=== PATIENT | male | born 1980 ===

== ENCOUNTER 2016-10-15 00:56 | Emergency (ER) | payer MEDICAID ==
[2016-10-15 01:01] VITALS: RESP 16; O2SAT 97
--- NOTE | 2016-10-15 02:37 | EDPHY ---
H & P Stated Complaint: trip and fall, lacs on face from broken glass Time Seen by Provider: 10/15/16 01:06 HPI/ROS: HPI: The patient presents with a fall which occurred just prior to arrival. He was walking down the stairs and a sasha jar shattered and hit him in the face. He has multiple facial lacerations and abrasions. He did not lose consciousness and does not have a headache, vomiting. REVIEW OF SYSTEMS Constitutional: No fever, no chills. Eyes: No discharge. ENT: No sore throat. Cardiovascular: No chest pain, no palpitations. Respiratory: No cough, no shortness of breath. Gastrointestinal: No abdominal pain, no vomiting. Genitourinary: No hematuria. Musculoskeletal: No back pain. Skin: No rashes. Neurological: No headache. PMHx: Healthy, recently seen for finger laceration, tetanus vaccine is up-to- date TRAUMA PHYSICAL General Appearance: Alert, no distress Head: There is a left-sided upper lip laceration which is oblique through the vermilion border, there is a 1 cm in her upper lip laceration which is superficial, there are 3 forehead lacerations with palpable foreign body. Eyes: Pupils equal, round, reactive ENT, Mouth: No hemotypanium, no oral trauma Neck: Non- tender, trachea midline Respiratory: No chest wall tenderness, no subcutaneous air, lungs clear bilaterallty Cardiovascular: Regular rate and rhythm Abdomen: Abdomen is soft and non-tender, pelvis stable Extremities: Non-tender, full range of motion Neurological: A&Ox3, GCS=15,normal motor function with 5/5 strength in all 4 extremities, normal sensory exam Source: Patient Exam Limitations: No limitations - Personal History Current Tetanus/Diphtheria Vaccine: Yes Current Tetanus Diphtheria and Acellular Pertussis (TDAP): Yes - Medical/Surgical History Hx Asthma: No Hx Chronic Respiratory Disease: No Hx Diabetes: No Hx Cardiac Disease: No Hx Renal Disease: No Hx Cirrhosis: No Hx Alcoholism: No Hx HIV/AIDS: No Hx Splenectomy or Spleen Trauma: No Other PMH: Denies - Social History Smoking Status: Current every day smoker Constitutional: Initial Vital Signs Temperature (C) 36.8 C 10/15/16 00:58 Heart Rate 67 10/15/16 00:58 Respiratory Rate 16 10/15/16 00:58 Blood Pressure 124/70 H 10/15/16 00:58 O2 Sat (%) 97 10/15/16 00:58 O2 Delivery Mode Room Air Allergies/Adverse Reactions: No Known Allergies Allergy (Unverified 10/15/16 00:57) Home Medications: Medication Instructions Recorded Doxycycline Calcium 10/15/16 Medical Decision Making Procedures: LACERATION REPAIR Procedure: Laceration repair. Verbal consent was obtained from the patient. The linear 3 cm laceration on the left upper lip with involvement of the vermilion border was anesthetized using lidocaine with epinephrine. The wound was scrubbed, draped and explored to its base with a gloved finger. There were no deep structures involved. No tendon injury was identified. . The wound was repaired with 5.0 nylon simple interrupted sutures. The wound repair was complex. The procedure was performed by myself. Differential Diagnosis: This is a 35-year-old healthy man who presents with a fall which occurred just prior to arrival in which a door shattered on his face. He has sustained multiple lacerations which are superficial to his forehead, however there is palpable glass in these. He also has a lip laceration involving the vermilion border. He did not lose consciousness, does not have a headache, vomiting, vision changes, thus I do not believe he meets criteria for CT scan imaging of his head. In the emergency department, the patient was given anesthesia, wounds were copiously irrigated, lip laceration was repaired and we were able to remove several shards of glass from his forehead. He will be discharged with follow- up with Plastic surgery given the degree of his lip laceration. He is in agreement with this plan. Departure - Departure Disposition: Home, Routine, Self-Care Clinical Impression: Lip laceration, Foreign body of face, superficial Condition: Good Instructions: Soft Tissue Foreign Body (ED), Facial Laceration (ED) Additional Instructions: This sutures should remain in for the next 7 days. You can return here to the emergency room to have them removed. You can use antibiotic ointment on the wound until then. Your forehead has several small lacerations that do not require any stitches. We did remove small pieces of glass from them and there is a chance that there is still a small amount of glass in place. Because of this if you experience any symptoms, you can return to the emergency room. I have also given you information for follow up with the plastic surgeon who can see you for your lip laceration if it does not heal the way would like it to. Referrals: Ben Hector JR, MD [Medical Doctor] - As per Instructions
[2016-10-15 02:54] VITALS: BP 110/64; PULSE 54; TEMP 98.1
== END 2016-10-15 02:54 | disposition home or self-care (01) ==
PROC: 0CQ0XZZ Repair Upper Lip, External Approach (ICD-10-PCS; principal; 2016-10-15)
DX: S01.511A Laceration without foreign body of lip, initial encounter (principal); S01.82XA Laceration with foreign body of other part of head, initial encounter; F17.200 Nicotine dependence, unspecified, uncomplicated; W25.XXXA Contact with sharp glass, initial encounter; Y99.8 Other external cause status; Y93.01 Activity, walking, marching and hiking